=== PATIENT | male | born 1960 | race Caucasian/White ===

== ENCOUNTER 2018-11-06 20:40 | Inpatient (IN) | payer MEDICARE, MEDICAID ==
[~2018-11-06] VITALS: Ht 157.5 cm; Wt 50.0 kg
[2018-11-06] MEDS ORDERED: temazepam 15mg capsule PO PRN (21:00)
--- NOTE | 2018-11-06 21:26 | NUR ---
Received report from DAVE Steward. Awaiting patient arrival to the unit.
--- NOTE | 2018-11-06 21:45 | NUR ---
Patient arrived to the floor via gurney escorted by 2 paramedics and 1 PATIENT REGISTRATION SUPERVISOR. Patient placed in room 345B, awake and alert on room air, in no apparent distress. Call light and items of frequent use within reach. Will continue to monitor.
[2018-11-06 21:50] VITALS: BP 108/79
[2018-11-06] MEDS ORDERED: nitroGLYCERIN 0.4mg SUBLingual tab SL PRN ×2 (23:25)
[2018-11-06] MEDS ORDERED: aminophylline 250mg/10ml inj. IV PRN (23:25)
[2018-11-06] MEDS ORDERED: morphine 2 MG/ML inj. syringe IV PRN (23:25)
[2018-11-06] MEDS ORDERED: regadenoson 0.4mg/5ml syringe IV PRN (23:25)
[2018-11-06] MEDS ORDERED: metoprolol tartrate 1mg/ml inj IV PRN (23:25)
[2018-11-06] MEDS ORDERED: acetaminophen 325mg tablet PO PRN ×2 (23:25)
[2018-11-06] MEDS ORDERED: HYDROcodone/acetaminophen 5mg/325mg tablet PO PRN (23:25)
[2018-11-06] MEDS ORDERED: mag hydrox/Alum hydrox/simeth 30ml oral suspension PO PRN (23:25)
[2018-11-06] MEDS ORDERED: magnesium hydroxide 30ml (MOM) UD suspension PO PRN (23:25)
[2018-11-06] MEDS ORDERED: ondansetron/PF 4mg/2ml inj IV PRN (23:25)
[2018-11-07] VITALS (17 sets, daily range): BP systolic 91–126; BP diastolic 64–84
[2018-11-07 04:29] LABS: BASOPHILS % (AUTO) 0.4 % (0-1); EOSINOPHILS # (AUTO) 0.1 X10'3 (0-0.9); EOSINOPHILS % (AUTO) 1.6 % (0-6); HEMOGLOBIN 13.1 g/dl (14.0-17.9); LYMPHOCYTES # (AUTO) 1.4 X10'3 (1.1-4.8); LYMPHOCYTES % (AUTO) 20.3 % (21-51); MEAN CORPUSCULAR HEMOGLOBIN 34.7 PG (27.0-31.0); MEAN CORPUSCULAR HGB CONC 34.5 g/dL (33.0-36.5); MEAN CORPUSCULAR VOLUME 100.4 FL (78-98); MEAN PLATELET VOLUME 8.7 FL (7.4-10.4); MONOCYTES # (AUTO) 0.6 X10'3 (0-0.9); MONOCYTES % (AUTO) 9.1 % (2-12); NEUTROPHILS # (AUTO) 4.6 X10'3 (1.8-7.7); NEUTROPHILS % (AUTO) 68.6 % (42-75); PLATELET COUNT 156 X10'3 (140-440); RED BLOOD COUNT 3.79 X10'6 (4.70-6.10); RED CELL DISTRIBUTION WIDTH 13.7 % (11.5-14.5); WHITE BLOOD COUNT 6.8 X10'3 (4.5-11.0)
[2018-11-07 04:40] LABS: ALBUMIN 3.1 G/DL (3.4-5.0); ANION GAP 10 (8-16); BLOOD UREA NITROGEN 9 MG/DL (7-18); BUN/CREATININE RATIO 9.9 (5.4-32.0); CALCIUM 8.3 MG/DL (8.5-10.1); CHLORIDE 108 MMOL/L (99-107); CHOL/HDL RATIO 2.7 (0.00-4.99); CHOLESTEROL 147 MG/DL (0-200); CREATININE 0.91 MG/DL (0.60-1.10); GLUCOSE 101 MG/DL (70-104); HDL CHOLESTEROL 54 MG/DL (35-60); LDL CHOLESTEROL 81 MG/DL (50-100); POTASSIUM 3.8 MMOL/L (3.5-5.1); SODIUM 143 MMOL/L (135-145); TOTAL CARBON DIOXIDE 24.7 MMOL/L (24-32); TRIGLYCERIDES 71 MG/DL (20-135); eGFR 85 ML/MIN
--- NOTE | 2018-11-07 06:30 | NUR ---
Patient in room [facility] 345. I have received report from Lois and had the opportunity to ask questions and assume patient care. Addendum: 11/07/18 at 0811 by Radha Diop RN Amended: Links added.
--- NOTE | 2018-11-07 06:37 | NUR ---
Problems reprioritized. Patient report given, questions answered & plan of care reviewed with DAVE Garcia.
--- NOTE | 2018-11-07 07:00 | NUR ---
Patient in room [facility] 345. I have received report from trice and had the opportunity to ask questions and assume patient care. Addendum: 11/07/18 at 0908 by Radha Diop RN Amended: Links added.
[2018-11-07 07:56] LABS: TROPONIN I 41.36 NG/ML (0.0-0.05)
--- NOTE | 2018-11-07 08:11 | NUR ---
Dr. Rocha at bedside.
[2018-11-07] MEDS ORDERED: heparin 25,000 UNIT/250ml bag 250 ML IV SCH (08:18)
[2018-11-07] MEDS ORDERED: heparin 10,000 units/1 ML INJ IV ONE (08:20)
[2018-11-07] MEDS ORDERED: heparin 10,000 units/1 ML INJ IV PRN (08:20)
[2018-11-07 09:06] LABS: TROPONIN I 38.46 NG/ML (0.0-0.05)
--- NOTE | 2018-11-07 09:08 | NUR ---
Report to Pamela on Tele, pt to be transferred shortly.
[2018-11-07] MEDS ORDERED: NO HOME MEDS (09:11)
[2018-11-07] MEDS: aspirin 81mg tablet.DR PO SCH (09:45)
[2018-11-07] MEDS: tirofiban 5mg in NS 100mL 100 ML IV SCH ×2 (09:46→23:25)
[2018-11-07] MEDS: atorvastatin 20mg tablet PO SCH (09:46)
[2018-11-07] MEDS ORDERED: pneumococcal 23-VAL P-sac vacc 25 mcg/0.5ml vial IMVAC ONE (10:00)
[2018-11-07] MEDS ORDERED: LIDOcaine 1% (10mg/ml)w/preservative injection 20ml MDV ONE (10:36)
[2018-11-07] MEDS ORDERED: iohexol 350 MG/1 ML 200ml bottle ONE (10:36)
[2018-11-07] MEDS ORDERED: fentaNYL/PF 50MCG/1 ML 2ML syringe ONE (10:56)
[2018-11-07] MEDS ORDERED: midazolam 2 mg/2 ml injection ONE ×2 (10:56→11:29)
[2018-11-07 11:13] LABS: INR 1.1 INR
[2018-11-07] MEDS ORDERED: ticagrelor 90mg tablet ONE (11:16)
[2018-11-07] MEDS ORDERED: heparin 1,000unit/ml 10ml vial 10 ML ONE (11:16)
--- NOTE | 2018-11-07 12:22 | NUR ---
PAGER ID: [phone] MESSAGE: [id number] pt Mikala ORR patient just got back from lab tech and had non-sustained VTach run. Print out in chart. - Pamela [id number]
[2018-11-07] MEDS ORDERED: proCHLORperazine 10 MG/2 ml inj IV PRN (12:25)
[2018-11-07] MEDS ORDERED: normal saline 1000ml 1,000 ML IV SCH (12:25)
[2018-11-07] MEDS ORDERED: HYDROcodone/acetaminophen 10/325mg tab PO PRN (12:25)
[2018-11-07] MEDS ORDERED: magnesium Cl slow-release 64mg tablet PO PRN (12:40)
[2018-11-07] MEDS ORDERED: potassium Cl 40MEQ/NS 500ml 500 ML IV PRN ×2 (12:40)
[2018-11-07] MEDS ORDERED: potassium Cl 20 mEq SR tablet PO PRN ×2 (12:40)
[2018-11-07] MEDS ORDERED: magnesium 4gm in 100ml NS 100 ML IV PRN (12:40)
[2018-11-07] MEDS ORDERED: carVEDilol 3.125mg tablet PO ONE (12:50)
[2018-11-07] MEDS: morphine 2 MG/ML inj. syringe IV PRN ×2 (13:05→17:32)
--- NOTE | 2018-11-07 14:10 | NUR ---
Spoke to Dr. Gonzalez regarding patient complaining of back pain 02/25 that extends to his midback. Vitals are stable, site was assessed and no discoloration noted as far as I can see with the patient supine and movement restricted. Positive pedal pulses and cap refill obtained. Addendum: 11/07/18 at 1417 by Pamela Cain RN Per Dr. Gonzalez, continue to monitor patient and medicate for pain control as ordered.
[2018-11-07 14:13] LABS: MAGNESIUM 1.8 MG/DL (1.5-2.4); POTASSIUM 3.9 MMOL/L (3.5-5.1)
--- NOTE | 2018-11-07 15:17 | NUR ---
PAGER ID: [phone] MESSAGE: [id number] pt Ab murphyet + complaining of pain 02/25 that extends to his midback. Vitals stable, no discoloration noted as far as I can see, positive pedal pulses and cap refill. He is not staying still, may we try an anxiolytic? Pamela Hawthorne Addendum: 11/07/18 at 1529 by Pamela Cain RN Mio Carvalho order per Dr. Rocha.
[2018-11-07] MEDS ORDERED: LORazepam 0.5 MG tablet PO PRN (15:25)
[2018-11-07 16:48] LABS: BASOPHILS % (AUTO) 0.2 % (0-1); EOSINOPHILS # (AUTO) 0.1 X10'3 (0-0.9); EOSINOPHILS % (AUTO) 0.7 % (0-6); HEMATOCRIT 37.9 % (42.0-52.0); HEMOGLOBIN 13.2 g/dl (14.0-17.9); LYMPHOCYTES # (AUTO) 0.9 X10'3 (1.1-4.8); LYMPHOCYTES % (AUTO) 10.6 % (21-51); MEAN CORPUSCULAR HEMOGLOBIN 35.2 PG (27.0-31.0); MEAN CORPUSCULAR HGB CONC 34.9 g/dL (33.0-36.5); MEAN CORPUSCULAR VOLUME 100.7 FL (78-98); MEAN PLATELET VOLUME 8.8 FL (7.4-10.4); MONOCYTES # (AUTO) 0.5 X10'3 (0-0.9); MONOCYTES % (AUTO) 5.6 % (2-12); NEUTROPHILS # (AUTO) 7.3 X10'3 (1.8-7.7); NEUTROPHILS % (AUTO) 82.9 % (42-75); PLATELET COUNT 152 X10'3 (140-440); RED BLOOD COUNT 3.76 X10'6 (4.70-6.10); RED CELL DISTRIBUTION WIDTH 13.6 % (11.5-14.5); WHITE BLOOD COUNT 8.8 X10'3 (4.5-11.0)
--- NOTE | 2018-11-07 18:55 | NUR ---
Problems reprioritized. Patient report given, questions answered & plan of care reviewed with DAVE Roman.
--- NOTE | 2018-11-07 19:19 | NUR ---
Patient in room PCU 3023A. I have received report from DAVE SIMPSON and had the opportunity to ask questions and assume patient care.
[2018-11-07] MEDS ORDERED: metoprolol tartrate 12.5mg (1/2 tablet) PO SCH (20:00)
[2018-11-07] MEDS: ticagrelor 90mg tablet PO SCH (20:13)
[2018-11-07] MEDS: carVEDilol 3.125mg tablet PO SCH (20:19)
[2018-11-08 03:00] VITALS: BP 102/66
[2018-11-08] MEDS ORDERED: albuterol 2.5 MG/3 ML nebule NEB PRN (03:05)
[2018-11-08 05:28] LABS: BASOPHILS % (AUTO) 0.3 % (0-1); EOSINOPHILS # (AUTO) 0.1 X10'3 (0-0.9); EOSINOPHILS % (AUTO) 1.6 % (0-6); HEMATOCRIT 38.3 % (42.0-52.0); HEMOGLOBIN 12.9 g/dl (14.0-17.9); LYMPHOCYTES # (AUTO) 0.8 X10'3 (1.1-4.8); LYMPHOCYTES % (AUTO) 11.7 % (21-51); MEAN CORPUSCULAR HEMOGLOBIN 34.4 PG (27.0-31.0); MEAN CORPUSCULAR HGB CONC 33.6 g/dL (33.0-36.5); MEAN CORPUSCULAR VOLUME 102.1 FL (78-98); MONOCYTES # (AUTO) 0.5 X10'3 (0-0.9); MONOCYTES % (AUTO) 7.6 % (2-12); NEUTROPHILS # (AUTO) 5.6 X10'3 (1.8-7.7); NEUTROPHILS % (AUTO) 78.8 % (42-75); PLATELET COUNT 150 X10'3 (140-440); RED BLOOD COUNT 3.75 X10'6 (4.70-6.10); RED CELL DISTRIBUTION WIDTH 13.4 % (11.5-14.5); WHITE BLOOD COUNT 7.1 X10'3 (4.5-11.0)
[2018-11-08 05:34] LABS: ALANINE AMINOTRANSFERASE 157 U/L (12-78); ALBUMIN 3.1 G/DL (3.4-5.0); ALBUMIN/GLOBULIN RATIO 1.1 (1.1-1.5); ALKALINE PHOSPHATASE 120 IU/L (46-116); ANION GAP 8 (8-16); ASPARTATE AMINO TRANSFERASE 186 U/L (10-37); BILIRUBIN,TOTAL 1.6 MG/DL (0.1-1.0); BLOOD UREA NITROGEN 9 MG/DL (7-18); BUN/CREATININE RATIO 10.1 (5.4-32.0); CHLORIDE 107 MMOL/L (99-107); CHOL/HDL RATIO 2.5 (0.00-4.99); CHOLESTEROL 122 MG/DL (0-200); CREATININE 0.89 MG/DL (0.60-1.10); GLUCOSE 97 MG/DL (70-104); HDL CHOLESTEROL 49 MG/DL (35-60); LDL CHOLESTEROL 67 MG/DL (50-100); MAGNESIUM 1.9 MG/DL (1.5-2.4); POTASSIUM 4.1 MMOL/L (3.5-5.1); SODIUM 138 MMOL/L (135-145); TOTAL CARBON DIOXIDE 23.2 MMOL/L (24-32); TRIGLYCERIDES 74 MG/DL (20-135); eGFR 87 ML/MIN
--- NOTE | 2018-11-08 06:12 | NUR ---
Problems reprioritized. Patient report given, questions answered & plan of care reviewed with ANGELICA Roach RN.
--- NOTE | 2018-11-08 06:22 | NUR ---
[place] documentation: I have reviewed and agree with all interventions, assessments performed and documented by Shalom ACOSTA. [place] Medication Administration: For this medication-pass time frame, all medication were reviewed, dispensed, administered and documented per hospital policy by Shalom ACOSTA.
--- NOTE | 2018-11-08 06:32 | NUR ---
Patient in room PCU 3023. I have received report from DAVE Roman and DAVE Rausch and had the opportunity to ask questions and assume patient care. Pt seen for bedside report, resting on right side with eyes closed. Addendum: 11/08/18 at 0634 by Shirin Ryan RN omit note, wrong patient
[2018-11-08 07:00] VITALS: BP 105/80
[2018-11-08] MEDS ORDERED: clopidogrel 75mg tablet PO SCH (08:00)
[2018-11-08] MEDS: atorvastatin 20mg tablet PO SCH (08:27)
[2018-11-08] MEDS: ticagrelor 90mg tablet PO SCH (08:27)
[2018-11-08] MEDS: aspirin 81mg tablet.DR PO SCH (08:27)
[2018-11-08] MEDS: carVEDilol 3.125mg tablet PO SCH (08:31)
[2018-11-08 11:00] VITALS: BP 123/86
[2018-11-08] MEDS ORDERED: NITR0.4T51 SL (11:44)
[2018-11-08] MEDS ORDERED: COR3.125T PO (11:44)
[2018-11-08] MEDS ORDERED: TICA90TA PO (11:44)
[2018-11-08] MEDS ORDERED: ASPI-1071 PO (11:44)
--- NOTE | 2018-11-08 13:44 | NUR ---
pt Dcd, IVs out, prescriptions called in, pt stable, tele box removed
== END 2018-11-08 13:25 | disposition home or self-care (01) | DRG 246 ==
LOC: SUR 3N 20:40 → UNDOADMIN 20:40 → SUR 3N 23:30 → PCU 3S 11-07 09:25
PROVIDERS: ADMIT Internal Medicine; ATTEND Internal Medicine
PROC: 027034Z Dilation of Coronary Artery, One Artery with Drug-eluting Intraluminal Device, Percutaneous Approach (ICD-10-PCS; principal; 2018-11-07)
PROC: 4A023N7 Measurement of Cardiac Sampling and Pressure, Left Heart, Percutaneous Approach (ICD-10-PCS; 2018-11-07)
PROC: B2111ZZ Fluoroscopy of Multiple Coronary Arteries using Low Osmolar Contrast (ICD-10-PCS; 2018-11-07)
PROC: B2131ZZ Fluoroscopy of Multiple Coronary Artery Bypass Grafts using Low Osmolar Contrast (ICD-10-PCS; 2018-11-07)
PROC: B2151ZZ Fluoroscopy of Left Heart using Low Osmolar Contrast (ICD-10-PCS; 2018-11-07)
PROC: B2181ZZ Fluoroscopy of Left Internal Mammary Bypass Graft using Low Osmolar Contrast (ICD-10-PCS; 2018-11-07)
DX: T82.855A Stenosis of coronary artery stent, initial encounter (principal); I21.4 Non-ST elevation (NSTEMI) myocardial infarction; I50.22 Chronic systolic (congestive) heart failure; I42.9 Cardiomyopathy, unspecified; I47.2 Ventricular tachycardia; E03.9 Hypothyroidism, unspecified; E78.5 Hyperlipidemia, unspecified; F12.90 Cannabis use, unspecified, uncomplicated; R91.1 Solitary pulmonary nodule; I49.5 Sick sinus syndrome; T82.868A Thrombosis due to vascular prosthetic devices, implants and grafts, initial encounter; I25.10 Atherosclerotic heart disease of native coronary artery without angina pectoris; J44.9 Chronic obstructive pulmonary disease, unspecified; K21.9 Gastro-esophageal reflux disease without esophagitis; N40.0 Benign prostatic hyperplasia without lower urinary tract symptoms; Y83.2 Surgical operation with anastomosis, bypass or graft as the cause of abnormal reaction of the patient, or of later complication, without mention of misadventure at the time of the procedure; Z95.1 Presence of aortocoronary bypass graft; I25.2 Old myocardial infarction; Z95.5 Presence of coronary angioplasty implant and graft; Z95.810 Presence of automatic (implantable) cardiac defibrillator; Z90.49 Acquired absence of other specified parts of digestive tract; Z87.891 Personal history of nicotine dependence; Y92.9 Unspecified place or not applicable
CPT/HCPCS: 93306; 93459; C9606; 36415; 71045; 71046; 80048; 80053; 80061; 83735; 84132; 84484; 85025; 85610; 87070; 93005; 94640; 94760; 99152; A4620; A6257; C1760; C1769; C1874; G0378; J1644; J2001; J2250; J2270; J3010; J3246; J3490; J7030; Q9967

== ENCOUNTER 2019-12-06 12:26 | Outpatient (CLI) | payer MEDICARE, MEDICAID ==
[~2019-12-06] VITALS: Ht 157.5 cm; Wt 50.3 kg
[~2019-12-06 12:26] MED LIST: ASPI-1071 PO; COR3.125T PO; NITR0.4T51 SL; TICA90TA PO
[2019-12-06 13:34] LABS: BASOPHILS # (AUTO) 0.1 X10'3 (0-0.2); BASOPHILS % (AUTO) 1.2 % (0-1); EOSINOPHILS # (AUTO) 0.2 X10'3 (0-0.9); EOSINOPHILS % (AUTO) 2.9 % (0-6); LYMPHOCYTES # (AUTO) 0.6 X10'3 (1.1-4.8); LYMPHOCYTES % (AUTO) 9.1 % (21-51); MEAN CORPUSCULAR HEMOGLOBIN 34.2 PG (27.0-31.0); MEAN CORPUSCULAR VOLUME 100.7 FL (78-98); MEAN PLATELET VOLUME 8.1 FL (7.4-10.4); MONOCYTES # (AUTO) 0.9 X10'3 (0-0.9); NEUTROPHILS # (AUTO) 5.3 X10'3 (1.8-7.7); NEUTROPHILS % (AUTO) 74.8 % (42-75); PRE OP HEMOGLOBIN 13.9 g/dL (14.0-17.9); PRE OP PLATELET COUNT 235 X10'3 (140-440); RED BLOOD COUNT 4.07 X10'6 (4.70-6.10)
[2019-12-06 13:44] LABS: PRE OP PROTIME 9.9 SECONDS (9.0-12.0)
[2019-12-06 14:13] LABS: ALBUMIN 4.1 G/DL (3.4-5.0); ALBUMIN/GLOBULIN RATIO 1.1 (1.1-1.5); ALKALINE PHOSPHATASE 130 IU/L (46-116); BLOOD UREA NITROGEN 19 MG/DL (7-18); BUN/CREATININE RATIO 16.2 (5.4-32.0); CHLORIDE 105 MMOL/L (99-107); CREATININE 1.17 MG/DL (0.60-1.10); PRE OP ALT 66 U/L (30-65); PRE OP ANION GAP 9 (8-16); PRE OP AST 43 U/L (10-37); PRE OP BILIRUB, TOTAL 0.5 MG/DL (0.0-1.0); PRE OP GLUCOSE 64 MG/DL (70-104); PRE OP POTASSIUM 4.5 MMOL/L (3.4-5.1); PRE OP SODIUM 140 MMOL/L (135-145); TOTAL PROTEIN 7.8 G/DL (6.4-8.2); eGFR 63 ML/MIN
[2019-12-07] MEDS ORDERED: CARV-50 PO (06:51)
[2019-12-07] MEDS ORDERED: ALBU18HF2 INH (06:51)
[2019-12-07] MEDS ORDERED: PANT-47 PO (06:51)
[2019-12-07] MEDS ORDERED: ALEN70TA60 PO (06:51)
[2019-12-07] MEDS ORDERED: ALB0.5UD IH (06:51)
[2019-12-07] MEDS ORDERED: ASPI-611 PO (06:51)
[2019-12-07] MEDS ORDERED: NITR0.4T51 SL (06:51)
[2019-12-07] MEDS ORDERED: TICA90TA PO (06:51)
[2019-12-07] MEDS ORDERED: ATOR40TA PO (06:51)
[2019-12-07] MEDS ORDERED: LEVO100T PO (06:51)
[2019-12-12] MEDS ORDERED: ringers solution, lacted 1,000 ML IV SCH (05:00)
[2019-12-12] MEDS ORDERED: DOCUMENT DATE & TIME OF BETA-BLOCKER PO ONE (05:30)
[2019-12-12] MEDS ORDERED: albuterol 2.5 MG/3 ML nebule NEB ONE (05:30)
[2019-12-12] MEDS ORDERED: famotidine 20mg tablet PO ONE (05:30)
[2019-12-12] MEDS ORDERED: VANCOMYCIN INJ 1000 MG in NORMAL SALINE 250ml IV.SOLN IV ONE (05:30)
== END 2019-12-06 23:59 | disposition home or self-care (01) ==
LOC: PRE-OP 12:26 → EDSTATUS 12-12 16:00
PROVIDERS: ATTEND Specialist
DX: I50.20 Unspecified systolic (congestive) heart failure (principal); Z01.818 Encounter for other preprocedural examination; Z95.810 Presence of automatic (implantable) cardiac defibrillator
CPT/HCPCS: 36415; 71046; 80053; 84443; 85025; 85610; 85730; 87081; J3370; J7120

== ENCOUNTER 2019-12-26 11:15 | Day surgery (SDC) | payer MEDICARE, MEDICAID ==
[2019-12-26] VITALS (16 sets, daily range): BP systolic 94–120; BP diastolic 56–87
[~2019-12-26] VITALS: Ht 157.5 cm; Wt 50.3 kg
[~2019-12-26 11:15] MED LIST changes: +ALB0.5UD IH; +ALBU18HF2 INH; +ALEN70TA60 PO; -ASPI-1071 PO; +ASPI-611 PO; +ATOR40TA PO; +CARV-50 PO; -COR3.125T PO; +DOCUMENT DATE & TIME OF BETA-BLOCKER PO ONE; +LEVO100T PO; +PANT-47 PO; +VANCOMYCIN INJ 1000 MG in NORMAL SALINE 250ml IV.SOLN IV ONE; +albuterol 2.5 MG/3 ML nebule NEB ONE; +famotidine 20mg tablet PO ONE
[2019-12-26] MEDS: ringers solution, lacted 1,000 ML IV SCH ×2 (12:32→23:25)
[2019-12-26 13:00] LABS: ISTAT HGB 13.3 g/dl (14.0-18.0); ISTAT IONIZED CALCIUM 1.19 mmol/L (1.03-1.32); ISTAT K 4.3 mmol/L (3.5-5.1)
[2019-12-26] MEDS ORDERED: ceFAZolin 1000mg inj ONE (15:48)
[2019-12-26] MEDS ORDERED: LIDOcaine 1% 30ml preserv. free vial ONE (15:48)
[2019-12-26] MEDS ORDERED: dexamethasone sod phosphate 10mg/ml inj ONE (15:52)
[2019-12-26] MEDS ORDERED: ondansetron/PF 4mg/2ml inj ONE (15:52)
[2019-12-26] MEDS ORDERED: desflurane 240ml liquid inh. IH ONE (15:52)
[2019-12-26] MEDS ORDERED: MIDAZolam 5mg/5ml vial ONE (15:52)
[2019-12-26] MEDS ORDERED: fentaNYL/PF 50MCG/1 ML 2ML syringe ONE (15:52)
[2019-12-26] MEDS ORDERED: iohexol 300 MG/1 ML 50ml polymer ONE (16:17)
[2019-12-26] MEDS ORDERED: BUPIVAcaine 0.5% inj/PF 30 ML ONE (16:17)
[2019-12-26] MEDS ORDERED: LIDOcaine 1% w/epiNEPHrine 1:200,000 30ml vial ONE (16:22)
[2019-12-26] MEDS ORDERED: LIDOcaine 1%/PF 5ML 10 MG/ML VIAL ONE (16:26)
[2019-12-26] MEDS ORDERED: ringers solution, lacted 1,000 ML IV SCH (17:03)
[2019-12-26] MEDS ORDERED: morphine 4 MG/ML inj SYRINge IV PRN (17:05)
[2019-12-26] MEDS ORDERED: morphine 2 MG/ML inj. syringe IV PRN (17:05)
[2019-12-26] MEDS ORDERED: proCHLORperazine 10 MG/2 ml inj IV PRN (17:05)
[2019-12-26] MEDS ORDERED: ondansetron/PF 4mg/2ml inj IV PRN (17:05)
[2019-12-26] MEDS ORDERED: meperidine/PF 25mg/ml syringe IV PRN ×3 (17:05)
[2019-12-26] MEDS ORDERED: propofol inj 20 ML IV ONE (17:25)
[2019-12-26] MEDS ORDERED: iohexol 300 MG/1 ML 10ml vial ONE (17:25)
[2019-12-26] MEDS ORDERED: meperidine/PF 25mg/ml syringe ONE (18:16)
--- NOTE | 2019-12-26 18:59 | NUR ---
Received from OR via , accompanied by Anesthesiologist DR NASH and report given by Anesthesiolgist. AWAKE AND GRETCHEN PAIN. VITALS STABLE. DRESSING DI.
[2019-12-26] MEDS: normal saline 1000ml 1,000 ML IV SCH (19:25)
[2019-12-26] MEDS ORDERED: oxyCODONE/APAP 5-325mg tablet PO PRN (19:25)
[2019-12-26] MEDS ORDERED: LORazepam 0.5 MG tablet PO PRN (19:30)
--- NOTE | 2019-12-26 19:49 | NUR ---
Report called to receiving nurse. Transferred via GURNEY Belongings . Special Issues communicated to receiving nurse. AWAKE AND ORIENTED. VITALS STABLE. DRESSING DI. STATES PAIN IMPROVING. TO U RM 3021 AT THIS TIME.
[2019-12-26] MEDS: oxyCODONE/APAP 10/325mg tablet PO PRN (21:58)
[2019-12-27] VITALS: BP 117/81
[2019-12-27 02:00] VITALS: BP 105/74
[2019-12-27] MEDS: oxyCODONE/APAP 10/325mg tablet PO PRN (04:38)
--- NOTE | 2019-12-27 05:01 | NUR ---
I agree with all documentation and medication administration completed by orienting nurse DAVE Crowe.
[2019-12-27 05:12] VITALS: BP 103/70
[2019-12-27] MEDS: normal saline 1000ml 1,000 ML IV SCH (05:25)
[2019-12-27 06:00] VITALS: BP 113/81
--- NOTE | 2019-12-27 06:15 | NUR ---
Problems reprioritized. Patient report given, questions answered & plan of care reviewed with DAVE Bolton.
--- NOTE | 2019-12-27 06:15 | NUR ---
Problems reprioritized. Patient report given, questions answered & plan of care reviewed with Gaby ACOSTA .
--- NOTE | 2019-12-27 06:30 | NUR ---
Patient in room PCU 3021. I have received report from DAVE Mcclure and had the opportunity to ask questions and assume patient care.
[2019-12-27] MEDS ORDERED: non-formulary drug (Alendronate Sodium* (Fosamax*) 1 TAB) PO SCH (07:20)
[2019-12-27] MEDS ORDERED: nitroGLYCERIN 0.4mg SUBLingual tab SL PRN (07:20)
[2019-12-27] MEDS ORDERED: albuterol 2.5 MG/3 ML nebule NEB PRN (07:35)
[2019-12-27] MEDS ORDERED: ticagrelor 90mg tablet PO SCH (08:00)
[2019-12-27] MEDS ORDERED: levoTHYROXINE 25mcg tablet PO SCH (08:00)
[2019-12-27] MEDS ORDERED: carVEDilol 3.125mg tablet PO SCH (08:00)
[2019-12-27] MEDS ORDERED: atorvastatin 20mg tablet PO SCH (08:00)
[2019-12-27] MEDS ORDERED: aspirin 81mg tablet.DR PO SCH (08:00)
[2019-12-27] MEDS ORDERED: pantoprazole 40mg Tablet.DR PO SCH (08:00)
[2019-12-27] MEDS ORDERED: albuterol 2.5 MG/3 ML nebule NEB SCH (08:00)
[2019-12-27] MEDS ORDERED: OXYC-145 PO (09:03)
--- NOTE | 2019-12-27 10:00 | NUR ---
rEVIEWED ALL DISCHARGE INSTRUCTIONS,PT GIVEN PAPER COPY OF PERCOCET FOR PAIN,NO OTHER NEW PRESRIPTIONS,SL DC'D ,LFA,SITE CLEAR,PT AWARE NEED FOR F/U APPTS PT DC'D HOME VIA WHEELCHAIR WITH ALL BELONGINGS
--- NOTE | 2019-12-29 11:08 | NUR ---
Case Management DC follow up: spoke to pt & pt SO, Eileen, via telephone. S/P: biventricular pacer implant Reports: "Feeling better, a surrounding tissue a little red". Denies s/s infection to surg site. Asking about changing dressing, CG just left the home and did not want to touch dressing until knows if it is ok. Referred pt to DC instructions, verbally went over, pt agrees to call Dr Dey office to ask if ok to remove outer dressing, "just to be safe". Denies: acute/worsening cp, SOB, resp distress, vertigo, syncope,weakness, blurry vision, N/V, CHIRINOS, emergent general pain, abd tenderness/distension, acute bleeding from surg site. Verbalizes understanding of s/s that warrant 9-11/ER visit for evaluation. Verbalizes understanding of new Rx/Percocet and why prescribed, resumes current Rx/taking as ordered, no ase r/t polypharmacy. Acknowledges need to schedule/keep follow up appts w/ PCP/Nixon/JULIETTE 01/03/20, Tiburcio 01/07 or staple removal, Dr Avila/pt will call to schedule follow up. Needs met, questions answered at DC, no further questions at this time.
== END 2019-12-27 10:15 | disposition home or self-care (01) ==
LOC: PRE-OP 11:15 → UNDOADMIN 21:38 → PCU 3S 21:38 → UNDODISIN 12-27 10:15 → PAS 12-27 10:15
PROVIDERS: ATTEND Specialist
DX: I42.9 Cardiomyopathy, unspecified (principal); I49.01 Ventricular fibrillation; J44.9 Chronic obstructive pulmonary disease, unspecified; I25.2 Old myocardial infarction; E78.5 Hyperlipidemia, unspecified; I25.10 Atherosclerotic heart disease of native coronary artery without angina pectoris; I45.10 Unspecified right bundle-branch block; I44.30 Unspecified atrioventricular block; I10 Essential (primary) hypertension; E03.9 Hypothyroidism, unspecified; M19.90 Unspecified osteoarthritis, unspecified site; K21.9 Gastro-esophageal reflux disease without esophagitis; Z87.891 Personal history of nicotine dependence; Z79.899 Other long term (current) drug therapy
CPT/HCPCS: 33225; 33249; 71045; 71048; 80047; 93005; 94640; 94760; C1882; C1898; J0690; J1100; J2001; J2175; J2250; J2270; J2405; J2704; J3010; J3370; J7050; Q9967; A4215; A4618; A6449; A7000; G0378; J7120

== ENCOUNTER 2022-09-18 08:40 | Outpatient (CLI) | payer MEDICARE, MEDICAID ==
[~2022-09-18] VITALS: Ht 154.9 cm; Wt 46.3 kg
[~2022-09-18 08:40] MED LIST changes: -DOCUMENT DATE & TIME OF BETA-BLOCKER PO ONE; +OXYC-145 PO; -VANCOMYCIN INJ 1000 MG in NORMAL SALINE 250ml IV.SOLN IV ONE; -albuterol 2.5 MG/3 ML nebule NEB ONE; -famotidine 20mg tablet PO ONE
[2022-09-18] MEDS ORDERED: albuterol 2.5 MG/3 ML nebule NEB ONE (09:55)
[2022-09-18 09:56] LABS: TOTAL HEMOGLOBIN 15.2 G/dl (14.0-17.9)
== END 2022-09-18 23:59 | disposition home or self-care (01) ==
LOC: RT 08:40
PROVIDERS: ATTEND Internal Medicine Pulmonary Disease
DX: R94.2 Abnormal results of pulmonary function studies (principal); J44.9 Chronic obstructive pulmonary disease, unspecified; J98.4 Other disorders of lung
CPT/HCPCS: 85018; 94060; 94727; 94729; 94760

== ENCOUNTER 2023-04-06 15:28 | Day surgery (SDC) | payer MEDICARE, MEDICAID ==
[~2023-04-06] VITALS: Ht 157.5 cm; Wt 50.3 kg
[2023-04-06] VITALS (7 sets, daily range): BP systolic 107–117; BP diastolic 59–78; PULSE 51–56; RESP 11–20; TEMP 98.4; O2SAT 94–96
[~2023-04-06 15:28] MED LIST changes: +LIDOcaine 1% (10mg/ml)w/preservative inj. 20ml MDV ONE; +fentaNYL/PF 50MCG/1 ML 2ML syringe ONE; +heparin 1,000 UNITS/NS 500ml 0 ML ONE; +iohexol 350 MG/ML 50ML vial IV ONE; +midazolam 1 mg/ML 2ml injection ONE
[2023-04-06] MEDS ORDERED: normal saline 1,000 ML IV SCH (15:55)
[2023-04-06] MEDS ORDERED: LEVO75TA7 PO (16:01)
[2023-04-06] MEDS ORDERED: BUDE10.7 (16:01)
[2023-04-06] MEDS ORDERED: SPIR25TA5 PO (16:01)
[2023-04-06] MEDS ORDERED: FLO0.4C (16:01)
[2023-04-06] MEDS ORDERED: AMI200T PO (16:01)
[2023-04-06] MEDS ORDERED: CARV6.2553 PO (16:04)
[2023-04-06] MEDS ORDERED: ASPI-1071 PO (16:04)
[2023-04-06] MEDS ORDERED: FURO20TA4 PO (16:06)
[2023-04-06] MEDS ORDERED: LIDOcaine 1% (10mg/ml)w/preservative inj. 20ml MDV ONE (16:07)
[2023-04-06] MEDS ORDERED: iohexol 350 MG/ML 50ML vial IV ONE (16:07)
[2023-04-06] MEDS ORDERED: midazolam 1 mg/ML 2ml injection ONE (16:19)
[2023-04-06] MEDS ORDERED: HYDROcodone/acetaminophen 5mg/325mg tablet PO PRN (17:20)
[2023-04-06] MEDS ORDERED: HYDROcodone/acetaminophen 10/325mg tab PO PRN (17:20)
[2023-04-07 06:48] LABS: ISTAT HGB MIX 12.9 g/dl (14.0-17.9); ISTAT Hct MIX 38 %PCV (42-52); ISTAT O2 SATURATION MIX VENOUS 61 % (60-80); ISTAT SOURCE VEN
== END 2023-04-06 18:45 | disposition home or self-care (01) ==
LOC: SSTAY O 15:28
PROVIDERS: ATTEND Student in an Organized Health Care Education/Training Program
DX: I11.0 Hypertensive heart disease with heart failure (principal); I50.22 Chronic systolic (congestive) heart failure; I25.10 Atherosclerotic heart disease of native coronary artery without angina pectoris; I25.2 Old myocardial infarction; E78.5 Hyperlipidemia, unspecified; G47.33 Obstructive sleep apnea (adult) (pediatric); I07.1 Rheumatic tricuspid insufficiency; Z95.1 Presence of aortocoronary bypass graft; Z79.899 Other long term (current) drug therapy; Z79.82 Long term (current) use of aspirin; Z87.891 Personal history of nicotine dependence; Z88.8 Allergy status to other drugs, medicaments and biological substances; Z95.810 Presence of automatic (implantable) cardiac defibrillator
CPT/HCPCS: 33289; 82803; 85014; 99152; C2624; J2250; J3490; Q9967; 99153; A6258; A6449; C1751; C1769; J1644; J3010